=== PATIENT | female | born 1995 | race Caucasian/White ===

== ENCOUNTER 2017-11-09 15:29 | Emergency (ER) | payer MEDICAID ==
[~2017-11-09] VITALS: Ht 160 cm; Wt 65.0 kg
[~2017-11-09 15:29] MED LIST: KEPP10002 PO; PERC5TAB12 PO
[2017-11-09 15:33] VITALS: BP 140/85; PULSE 91; RESP 22; TEMP 98.2; O2SAT 100
[2017-11-09 16:28] LABS: AUTOMATED NEUTROPHIL # 8.9 TH/MM3 (1.8-7.7); BASOPHIL % 0.4 % (0.0-2.0); EOSINOPHIL # 0.1 TH/MM3 (0-0.4); EOSINOPHIL % 1.2 % (0.0-4.0); HEMATOCRIT 37.6 % (35.0-46.0); HEMOGLOBIN 12.7 GM/DL (11.6-15.3); LYMPH % 15.9 % (9.0-44.0); LYMPHOCYTE # 1.8 TH/MM3 (1.0-4.8); MEAN CELL VOLUME 82.9 FL (80.0-100.0); MEAN CORPUSCULAR HEMOGLOBIN 28.1 PG (27.0-34.0); MEAN CORPUSCULAR HGB CONC 33.9 % (32.0-36.0); MEAN PLATELET VOLUME 7.4 FL (7.0-11.0); MONO % 4.2 % (0.0-8.0); MONOCYTE # 0.5 TH/MM3 (0-0.9); NEUT % 78.3 % (16.0-70.0); PLATELET COUNT 372 TH/MM3 (150-450); RED BLOOD COUNT 4.53 MIL/MM3 (4.00-5.30); RED CELL DISTRIBUTION WIDTH 14.2 % (11.6-17.2); WHITE BLOOD COUNT 11.3 TH/MM3 (4.0-11.0)
[2017-11-09 16:44] LABS: BILIRUBIN, URINE NEG (NEG); BLOOD, URINE NEG (NEG); GLUCOSE,URINE NEG (NEG); KETONE, URINE 40 mg/dL (NEG); MUCUS URINE MANY /lpf (OCC); NITRITE,URINE NEG (NEG); PH, URINE 7.5 (5.0-8.5); SQUAMOUS EPITHELIAL CELL URINE 5 /hpf (0-5); URINE COLOR YELLOW (YELLW/STRAW); URINE LEUKOCYTE ESTERASE LARGE (NEG)
[2017-11-09 16:50] LABS: ALBUMIN 3.8 GM/DL (3.4-5.0); AST (GOT) 10 U/L (15-37); BICARBONATE 24.4 MEQ/L (21.0-32.0); BLOOD UREA NITROGEN 7 MG/DL (7-18); CALCIUM 9.3 MG/DL (8.5-10.1); CHLORIDE 102 MEQ/L (98-107); CREATININE 0.73 MG/DL (0.50-1.00); GLOMERULAR FILTRATION RATE 100 ML/MIN (>89); GLUCOSE,RANDOM 118 MG/DL (74-106); SODIUM (NA) 135 MEQ/L (136-145)
[2017-11-09 16:51] LABS: ALT (GPT) 14 U/L (10-53)
[2017-11-09 16:53] LABS: ALKALINE PHOSPHATASE 76 U/L (45-117); TOTAL BILIRUBIN ADULT 0.2 MG/DL (0.2-1.0); TOTAL PROTEIN 8.3 GM/DL (6.4-8.2)
[2017-11-09] MEDS ORDERED: ONDANSETRON ODT 4 MG TAB PO ONE (17:30)
[2017-11-09] MEDS ORDERED: ZOFR4TAB3 SL (17:43)
[2017-11-09] MEDS ORDERED: CEPH-460 PO (17:43)
--- NOTE | 2017-11-09 17:45 | PD ---
HPI Chief Complaint: Abdominal Pain Time Seen by Provider: 17:09 Travel History International Travel<30 days: No Contact w/Intl Traveler<30days: No Traveled to known affect area: No History of Present Illness HPI 22-year-old woman who presents to the emergency department complaining of nausea vomiting and loose stools and diarrhea. She states has been ongoing for the past 3 or 4 days. She describes copious vomiting, and difficulty keeping any p.o. down. She also reports her last mental period was about 3 months ago. She has no urinary symptoms. No vaginal discharge or vaginal bleeding. No definite sick contacts. No other complaints per History Past Medical History Medical History: Denies Significant Hx Tetanus Vaccination: > 5 Years Influenza Vaccination: No LMP: 09/08/17 : 1 Para: 1 Social History Alcohol Use: No Tobacco Use: Yes (2 cigarettes a day) Allergies-Medications (Allergen,Severity, Reaction): Coded Allergies: No Known Allergies (Verified Adverse Reaction, Unknown, 11/09/17) Reported Meds & Prescriptions Reported Meds & Active Scripts Active No Active Prescriptions or Reported Medications Review of Systems Except as stated in HPI: all other systems reviewed are Neg Physical Exam Narrative GENERAL: Well-appearing, no acute distress. SKIN: Focused skin assessment warm/dry. NECK: Trachea midline. No JVD. CARDIOVASCULAR: Regular rate and rhythm. No murmur appreciated. RESPIRATORY: No accessory muscle use. Clear to auscultation. Breath sounds equal bilaterally. GASTROINTESTINAL: Abdomen soft, non-tender, nondistended. Hepatic and splenic margins not palpable. MUSCULOSKELETAL: No obvious deformities. No edema NEUROLOGICAL: Awake and alert. No obvious cranial nerve deficits. Motor grossly within normal limits. Normal speech. Data Data Last Documented VS Vital Signs Date Time Temp Pulse Resp B/P (MAP) Pulse Ox O2 Delivery O2 Flow Rate FiO2 11/09/17 17:05 18 11/09/17 15:33 98.2 91 140/85 (103) 100 Room Air Orders Orders Complete Blood Count With Diff (11/09/17 15:54) Comprehensive Metabolic Panel (11/09/17 15:54) Urinalysis - C+S If Indicated (11/09/17 15:54) Ed Urine Pregnancytest Poc (11/09/17 15:54) Urine Culture (11/09/17 16:00) Ed Poc Ultrasound (11/09/17 ) Ondansetron Odt (Zofran Odt) (11/09/17 17:30) Gc And Chlamydia Pcr (11/09/17 17:19) Labs Laboratory Tests Test 11/09/17 16:00 White Blood Count 11.3 TH/MM3 Red Blood Count 4.53 MIL/MM3 Hemoglobin 12.7 GM/DL Hematocrit 37.6 % Mean Corpuscular Volume 82.9 FL Mean Corpuscular Hemoglobin 28.1 PG Mean Corpuscular Hemoglobin Concent 33.9 % Red Cell Distribution Width 14.2 % Platelet Count 372 TH/MM3 Mean Platelet Volume 7.4 FL Neutrophils (%) (Auto) 78.3 % Lymphocytes (%) (Auto) 15.9 % Monocytes (%) (Auto) 4.2 % Eosinophils (%) (Auto) 1.2 % Basophils (%) (Auto) 0.4 % Neutrophils # (Auto) 8.9 TH/MM3 Lymphocytes # (Auto) 1.8 TH/MM3 Monocytes # (Auto) 0.5 TH/MM3 Eosinophils # (Auto) 0.1 TH/MM3 Basophils # (Auto) 0.0 TH/MM3 CBC Comment DIFF FINAL Differential Comment Urine Color YELLOW Urine Turbidity HAZY Urine pH 7.5 Urine Specific [place] 1.029 Urine Protein 30 mg/dL Urine Glucose (UA) NEG mg/dL Urine Ketones 40 mg/dL Urine Occult Blood NEG Urine Nitrite NEG Urine Bilirubin NEG Urine Urobilinogen LESS THAN 2.0 MG/DL Urine Leukocyte Esterase LARGE Urine RBC 9 /hpf Urine WBC 75 /hpf Urine Squamous Epithelial Cells 5 /hpf Urine Mucus MANY /lpf Microscopic Urinalysis Comment CULTURE INDICATED Blood Urea Nitrogen 7 MG/DL Creatinine 0.73 MG/DL Random Glucose 118 MG/DL Total Protein 8.3 GM/DL Albumin 3.8 GM/DL Calcium Level 9.3 MG/DL Alkaline Phosphatase 76 U/L Aspartate Amino Transf (AST/SGOT) 10 U/L Alanine Aminotransferase (ALT/SGPT) 14 U/L Total Bilirubin 0.2 MG/DL Sodium Level 135 MEQ/L Potassium Level 3.4 MEQ/L Chloride Level 102 MEQ/L Carbon Dioxide Level 24.4 MEQ/L Anion Gap 9 MEQ/L Estimat Glomerular Filtration Rate 100 ML/MIN [facility] Medical Decision Making Medical Screen Exam Complete: Yes Emergency Medical Condition: Yes Interpretation(s) LABS: CBC remarkable for mild anemia. CMP unremarkable. UA with some pyuria. Differential Diagnosis , gastroenteritis, gastroparesis, enteritis, other Narrative Course Medical decision making INITIAL consult 22-year-old woman presents to the emergency department complaining of nausea vomiting diarrhea, some abdominal discomfort. Ultrasound confirms IUP. Looks well. Recommend supportive treatment. Diagnosis Primary Impression: UTI (urinary tract infection) during Additional Instructions: Take antibiotics as prescribed. The Zofran if needed for nausea or vomiting. Return to the emergency department for any new or worsening symptoms. Med/Other Pt SpecificInfo: No Change to Meds Scripts Cephalexin (Keflex) 500 Mg Cap 500 MG PO Q8H for Infection, #30 CAP 0 Refills Prov: Karl Rodriguez MD 11/09/17 Ondansetron Odt (Zofran Odt) 4 Mg Tab 4 MG SL Q8HR Y for Nausea/Vomiting, #15 TAB 0 Refills Prov: Karl Rodriguez MD 11/09/17 Disposition: 01 DISCHARGE HOME Condition: Stable Karl Rodriguez MD Nov 09, 2017 17:45
== END 2017-11-09 18:25 | disposition home or self-care (01) ==
LOC: NEPE 15:29
DX: O23.40 Unspecified infection of urinary tract in pregnancy, unspecified trimester (principal); F17.210 Nicotine dependence, cigarettes, uncomplicated
CPT/HCPCS: 80053; 81001; 84703; 85025; 87086; 87491; 87591; 99283

== ENCOUNTER 2018-01-12 15:04 | Emergency (ER) | payer MEDICAID, OTHER ==
[~2018-01-12 15:04] MED LIST changes: +CEPH-460 PO; -KEPP10002 PO; -PERC5TAB12 PO; +ZOFR4TAB3 SL
--- NOTE | 2018-01-12 17:00 | PD ---
HPI Chief Complaint abdominal pain, decreased movement. Date Seen: Jan 12, 2018 Time Seen: 16:56 Travel History International Travel<30 Days: No Contact w/Intl Traveler<30Days: No Known Affected Area: No History of Present Illness HPI pt. is a 22 y/o @ ~ 18 weeks present w/ c/o intermittent abdominal pain and decreased fetalmovement. pt. states has not felt baby move today. pt. also states has had crampy abdominal pain for today. no lof/vb. Weeks Gestation: 18 Para: 1 : 2 History Past Medical History Medical History: Denies Significant Hx Obstetric History Obstetric History , x 1 Past Surgical History Surgical History: No Previous Surgery Family History Family History: Negative Social History Alcohol Use: No Tobacco Use: No Substance Abuse: No Allergies-Medications (Allergen,Severity, Reaction): Coded Allergies: No Known Allergies (Verified Adverse Reaction, Unknown, 11/09/17) Home Meds Active Scripts Cephalexin (Keflex) 500 Mg Cap, 500 MG PO Q8H for Infection, #30 CAP 0 Refills Prov:Karl Rodriguez MD 11/09/17 Ondansetron Odt (Zofran Odt) 4 Mg Tab, 4 MG SL Q8HR Y for Nausea/Vomiting, #15 TAB 0 Refills Prov:Karl Rodriguez MD 11/09/17 Review of Systems Except as stated in HPI: all other systems reviewed are Neg Physical Exam Narrative GENERAL: Well-nourished, well-developed patient. SKIN: Warm and dry. HEAD: Normocephalic and atraumatic. EYES: No scleral icterus. No injection or drainage. ENT: No nasal drainage noted. Mucous membranes pink. Airway patent. NECK: Supple, trachea midline. No JVD. CARDIOVASCULAR: Regular rate and rhythm without murmurs, gallops, or rubs. RESPIRATORY: Breath sounds equal bilaterally. No accessory muscle use. BREASTS: Bilateral exam showed no masses , no retractions, no nipple discharge. ABDOMEN/GI: Abdomen soft, non-tender, bowel sounds present, no rebound, no guarding Gravid GENITOURINARY: Uterine Contractions: none FHT's: Reactive: + fht EXTREMITIES: No cyanosis or edema. BACK: Nontender without obvious deformity. No CVA tenderness. NEUROLOGICAL: Awake and alert. Motor and sensory grossly within normal limits. Five out of 5 muscle strength in all muscle groups. Normal speech. Data Data Vital Signs Reviewed: Yes Orders Orders Urinalysis - C+S If Indicated (01/12/18 16:28) Braille Duplicating Machine Operator Clear For Discharge (01/12/18 ) Labs Laboratory Tests Test 01/12/18 15:18 [facility] Medical Record Reviewed: Yes Plan pt. w/ improved pain w/ hydration and +fht on doppler. condition d/w pt. pt. 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 f/u as sched. given precautions for return. Diagnosis Diagnosis: Primary Impression: Abdominal pain affecting Additional Impressions: Decreased movement 18 weeks gestation of Disposition: 01 DISCHARGE HOME Kristofer Modi Jr., MD Jan 12, 2018 17:00
[2018-01-12 17:04] LABS: AMORPHOUS SEDIMENT, URINE OCC; BACTERIA, URINE MOD /hpf; BILIRUBIN, URINE NEG (NEG); BLOOD, URINE NEG (NEG); GLUCOSE,URINE NEG (NEG); KETONE, URINE NEG (NEG); MUCUS URINE FEW /lpf (OCC); NITRITE,URINE NEG (NEG); PH, URINE 5.5 (5.0-8.5); SQUAMOUS EPITHELIAL CELL URINE 15 /hpf (0-5); URINE COLOR YELLOW (YELLW/STRAW); URINE LEUKOCYTE ESTERASE LARGE (NEG)
== END 2018-01-12 17:03 | disposition home or self-care (01) ==
LOC: HOBED 15:04
DX: O36.8120 Decreased fetal movements, second trimester, not applicable or unspecified (principal); Z3A.18 18 weeks gestation of pregnancy
CPT/HCPCS: 81001; 87086; 99283

== ENCOUNTER 2018-01-31 16:36 | Emergency (ER) | payer OTHER ==
--- NOTE | 2018-01-31 17:10 | PD ---
HPI Travel History International Travel<30 Days: No Contact w/Intl Traveler<30Days: No History of Present Illness HPI 22-year-old female at 21 weeks presents with vaginal bleeding. Patient was recently here on January for spotting and decreased movement. Patient had positive heart tones on Doppler and was discharged home. Patient reports she was went to the bathroom at work and noticed some blood in the toilet. She is not sure the amount of blood but she notes that there are some dime sized blood droplets. She endorses good movement. She denies leakage of fluid, contractions, chest pain, shortness of breath, and fevers. She has been receiving care at [facility] care at [place]. Patient reports to nurse that she was chlamydia positive just recently and reports that she was "currently on medication." History Past Medical History Narrative Medical None Obstetric History Obstetric History 1 , vaginal delivery Past Surgical History Narrative Surgical Right arm surgery Laser surgery on face Family History Family History: Negative Social History Alcohol Use: No Tobacco Use: No Substance Abuse: No Allergies-Medications (Allergen,Severity, Reaction): Coded Allergies: No Known Allergies (Verified Adverse Reaction, Unknown, 11/09/17) Home Meds Active Scripts Cephalexin (Keflex) 500 Mg Cap, 500 MG PO Q8H for Infection, #30 CAP 0 Refills Prov:Karl Rodriguez MD 11/09/17 Ondansetron Odt (Zofran Odt) 4 Mg Tab, 4 MG SL Q8HR Y for Nausea/Vomiting, #15 TAB 0 Refills Prov:Karl Rodriguez MD 11/09/17 Review of Systems Except as stated in HPI: all other systems reviewed are Neg Physical Exam Narrative GENERAL: Well-nourished, well-developed patient. SKIN: Warm and dry. HEAD: Normocephalic and atraumatic. EYES: No scleral icterus. No injection or drainage. ENT: No nasal drainage noted. Mucous membranes pink. Airway patent. NECK: Supple, trachea midline. No JVD. CARDIOVASCULAR: Regular rate and rhythm without murmurs, gallops, or rubs. RESPIRATORY: Breath sounds equal bilaterally. No accessory muscle use. BREASTS: Bilateral exam showed no masses , no retractions, no nipple discharge. ABDOMEN/GI: Abdomen soft, non-tender, bowel sounds present, no rebound, no guarding heart tones:150s Speculum exam: White, thick vaginal discharge noted, no blood appreciated EXTREMITIES: No cyanosis or edema. BACK: Nontender without obvious deformity. NEUROLOGICAL: Awake and alert. Motor and sensory grossly within normal limits. Five out of 5 muscle strength in all muscle groups. Normal speech. Data Data Vital Signs Reviewed: Yes Orders Orders Vital Signs (Adult) .ON ADMISSION (01/31/18 17:05) ^ Labor Status (01/31/18 17:05) Heart (01/31/18 17:05) ^ Non Stress Test (01/31/18 17:05) ^ Hydration (01/31/18 17:05) MDM Plan 22-year-old female at 21 weeks presents with vaginal bleeding. -Intrauterine - heart tones: 150s on Doppler -Speculum exam, no blood appreciated -OB ultrasound reassuring -Vaginal Discharge, patient reports being recently positive for chlamydia -GC and Chlamydia PCR pending -wet prep pending -Treatment with 250 mg IM Rocephin and 1 g of azithromycin p.o. -Follow-up with OB provider for routine OB care sdw Dr. Modi Disposition: DISCHARGE HOME Condition: Stable Scripts Azithromycin Powder Packet (Zithromax Powder Packet) 1 Gm Powderpack 2 GM PO ONCE for Infection, #2 PKT 0 Refills Mix with water according to packet instructions before use. Prov: Angie Scott MD R1 01/31/18 Angie Scott MD R1 Jan 31, 2018 17:10
[2018-01-31] MEDS ORDERED: ZITH1POW PO (17:39)
[2018-01-31 18:39] LABS: AMORPHOUS SEDIMENT, URINE RARE; BILIRUBIN, URINE NEG (NEG); BLOOD, URINE NEG (NEG); GLUCOSE,URINE NEG (NEG); KETONE, URINE NEG (NEG); MUCUS URINE FEW /lpf (OCC); NITRITE,URINE NEG (NEG); PH, URINE 6.5 (5.0-8.5); SQUAMOUS EPITHELIAL CELL URINE 9 /hpf (0-5); URINE COLOR LIGHT-YELLOW (YELLW/STRAW); URINE LEUKOCYTE ESTERASE LARGE (NEG)
[2018-01-31] MEDS ORDERED: cefTRIAXone 250 MG VIAL IM ONE (20:00)
[2018-01-31] MEDS ORDERED: AZITHROMYCIN PWD FOR SUSP 1 GM PACKET PO ONE (20:00)
== END 2018-01-31 19:00 | disposition home or self-care (01) ==
LOC: HOBED 16:36
DX: O26.852 Spotting complicating pregnancy, second trimester (principal); N89.8 Other specified noninflammatory disorders of vagina; Z3A.21 21 weeks gestation of pregnancy
CPT/HCPCS: 76815; 81001; 87210; 87491; 87591; 96372; 99284; J0696

== ENCOUNTER 2018-03-20 19:03 | Emergency (ER) | payer MEDICAID, OTHER ==
[~2018-03-20] VITALS: Ht 160 cm; Wt 78.5 kg
[~2018-03-20 19:03] MED LIST changes: +ZITH1POW PO
[2018-03-20] MEDS ORDERED: PREN1TAB45 PO (20:09)
[2018-03-20 20:17] LABS: AMORPHOUS SEDIMENT, URINE RARE; BACTERIA, URINE FEW /hpf; BILIRUBIN, URINE NEG (NEG); BLOOD, URINE NEG (NEG); GLUCOSE,URINE NEG (NEG); KETONE, URINE NEG (NEG); MUCUS URINE FEW /lpf (OCC); NITRITE,URINE NEG (NEG); PH, URINE 6.5 (5.0-8.5); SQUAMOUS EPITHELIAL CELL URINE 3 /hpf (0-5); URINE COLOR YELLOW (YELLW/STRAW); URINE LEUKOCYTE ESTERASE LARGE (NEG)
[2018-03-20 20:45] LABS: AUTOMATED NEUTROPHIL # 9.9 TH/MM3 (1.8-7.7); BASOPHIL % 0.2 % (0.0-2.0); EOSINOPHIL # 0.2 TH/MM3 (0-0.4); EOSINOPHIL % 1.7 % (0.0-4.0); HEMATOCRIT 31.2 % (35.0-46.0); HEMOGLOBIN 10.5 GM/DL (11.6-15.3); LYMPH % 14.5 % (9.0-44.0); LYMPHOCYTE # 1.8 TH/MM3 (1.0-4.8); MEAN CELL VOLUME 85.3 FL (80.0-100.0); MEAN CORPUSCULAR HEMOGLOBIN 28.8 PG (27.0-34.0); MEAN CORPUSCULAR HGB CONC 33.7 % (32.0-36.0); MEAN PLATELET VOLUME 7.3 FL (7.0-11.0); MONOCYTE # 0.8 TH/MM3 (0-0.9); NEUT % 77.6 % (16.0-70.0); PLATELET COUNT 356 TH/MM3 (150-450); RED BLOOD COUNT 3.66 MIL/MM3 (4.00-5.30); RED CELL DISTRIBUTION WIDTH 14.1 % (11.6-17.2); WHITE BLOOD COUNT 12.7 TH/MM3 (4.0-11.0)
--- NOTE | 2018-03-20 20:47 | PD ---
HPI Chief Complaint abdominal and back pain Date Seen: Mar 20, 2018 Time Seen: 20:41 Travel History International Travel<30 Days: No Contact w/Intl Traveler<30Days: No Known Affected Area: No History of Present Illness HPI pt. is a 22 y/o @ 27 6/7 weeks present w/ c/o of abdominal and lower back pain. pt. states over the last day has had lower abdominal and low back pain that is constant and worsening with movement. pt. also states has dysuria. +FM, no lof/vb, ? ctxs. defacating w/o diff. denies fever/chills. Weeks Gestation: 27 Para: 1 : 2 History Past Medical History Medical History: Denies Significant Hx Obstetric History Obstetric History , x 1 Past Surgical History Surgical History: No Previous Surgery Family History Family History: Negative Social History Alcohol Use: No Tobacco Use: No Substance Abuse: No Allergies-Medications (Allergen,Severity, Reaction): Coded Allergies: shellfish derived (Verified Allergy, Severe, Anaphylaxis, 03/20/18) No Known Allergies (Verified Adverse Reaction, Unknown, 11/09/17) Home Meds Reported Medications Vit,Calc76/Iron/Folic (Pnv 29-1 Tablet) 29 Mg Iron-1 Mg Tablet, 1 TAB PO DAILY 03/20/18 Discontinued Scripts Azithromycin Powder Packet (Zithromax Powder Packet) 1 Gm Powderpack, 2 GM PO ONCE for Infection, #2 PKT 0 Refills Mix with water according to packet instructions before use. Prov:Angie Scott MD R1 01/31/18 Cephalexin (Keflex) 500 Mg Cap, 500 MG PO Q8H for Infection, #30 CAP 0 Refills Prov:Karl Rodriguez MD 11/09/17 Ondansetron Odt (Zofran Odt) 4 Mg Tab, 4 MG SL Q8HR Y for Nausea/Vomiting, #15 TAB 0 Refills Prov:Karl Rodriguez MD 11/09/17 Review of Systems Except as stated in HPI: all other systems reviewed are Neg Physical Exam Narrative GENERAL: Well-nourished, well-developed patient. SKIN: Warm and dry. HEAD: Normocephalic and atraumatic. EYES: No scleral icterus. No injection or drainage. ENT: No nasal drainage noted. Mucous membranes pink. Airway patent. NECK: Supple, trachea midline. No JVD. CARDIOVASCULAR: Regular rate and rhythm without murmurs, gallops, or rubs. RESPIRATORY: Breath sounds equal bilaterally. No accessory muscle use. ABDOMEN/GI: Abdomen soft, tender diffusely lower abdomen, bowel sounds present, no rebound, no guarding Gravid, paraspinal tenderness low back l>>r GENITOURINARY: External Genitalia: intact and normal in appearance Uterine Contractions: 1rritability FHT's: Category: 2 Reactive: + Variability: mod Decels: karishma EXTREMITIES: No cyanosis or edema. BACK: Nontender without obvious deformity. No CVA tenderness. NEUROLOGICAL: Awake and alert. Motor and sensory grossly within normal limits. Five out of 5 muscle strength in all muscle groups. Normal speech. Data Data Vital Signs Reviewed: Yes Orders Orders Urinalysis - C+S If Indicated (03/20/18 19:26) Urine Culture (03/20/18 19:17) Complete Blood Count With Diff (03/20/18 20:32) Basic Metabolic Panel (Bmp) (03/20/18 20:32) Ceftriaxone Inj (Rocephin Inj) (03/20/18 20:35) B2B Sales Professional Clear For Discharge (03/20/18 ) Labs Laboratory Tests Test 03/20/18 19:17 Urine Color YELLOW Urine Turbidity HAZY Urine pH 6.5 Urine Specific [place] 1.019 Urine Protein NEG Urine Glucose (UA) NEG Urine Ketones NEG Urine Occult Blood NEG Urine Nitrite NEG Urine Bilirubin NEG Urine Urobilinogen LESS THAN 2.0 Urine Leukocyte Esterase LARGE Urine RBC 3 Urine WBC 28 Urine Squamous Epithelial Cells 3 Urine Amorphous Sediment RARE Urine Bacteria FEW Urine Mucus FEW Microscopic Urinalysis Comment CULTURE INDICATED Date/Time Source Procedure Growth Status 03/20/18 19:17 Urine Clean Catch Urine Culture Pending Received [facility] Medical Record Reviewed: Yes Plan pt. w/ +UTI, ? pyelonephritis. condition d/w pt. pt. to have po hydration. pt. w/o fever and will be treated as outpt. pt. to have 1 gm rocephin im now then [id number] x 2 more doses. all ? answered. pt. given precautions for return and f/u as sched. Diagnosis Diagnosis: Primary Impression: UTI (urinary tract infection) during Additional Impressions: Pyelonephritis affecting Abdominal pain affecting Condition: Stable Kristofer Modi Jr., MD Mar 20, 2018 20:47
[2018-03-20] MEDS ORDERED: LIDOCAINE HCL 1% PF 30 ML VIAL ONE (20:54)
[2018-03-20 21:02] LABS: BICARBONATE 21.7 MEQ/L (21.0-32.0); CALCIUM 8.8 MG/DL (8.5-10.1); CREATININE 0.56 MG/DL (0.50-1.00)
[2018-03-20] MEDS ORDERED: oxyCODONE/ACETAMINOPHEN 5 MG/325 MG TAB PO ONE (21:30)
== END 2018-03-20 22:00 | disposition home or self-care (01) ==
LOC: HOBED 19:03
DX: O23.42 Unspecified infection of urinary tract in pregnancy, second trimester (principal); O23.02 Infections of kidney in pregnancy, second trimester; N12 Tubulo-interstitial nephritis, not specified as acute or chronic; O26.892 Other specified pregnancy related conditions, second trimester; R10.9 Unspecified abdominal pain; M54.5 Low back pain; Z3A.27 27 weeks gestation of pregnancy
CPT/HCPCS: 80048; 81001; 84112; 85025; 87086; 96372; 99283; J0696

== ENCOUNTER 2018-03-21 20:13 | Emergency (ER) | payer MEDICAID ==
[~2018-03-21 20:13] MED LIST changes: -CEPH-460 PO; +PREN1TAB45 PO; -ZITH1POW PO; -ZOFR4TAB3 SL
== END 2018-03-21 21:37 | disposition left against medical advice (07) ==
LOC: NED 20:13
DX: Z53.21 Procedure and treatment not carried out due to patient leaving prior to being seen by health care provider (principal)
CPT/HCPCS: 99281

== ENCOUNTER 2018-05-09 03:53 | Observation (INO) ==
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
[2018-05-09] MEDS ORDERED: Acetaminophen 325 MG Tablet PO PRN (05:08)
[2018-05-09] MEDS ORDERED: Zolpidem Tartrate 5 MG Tablet PO PRN (05:08)
[2018-05-09 05:36] LABS: Bacteria,Urine Rare /hpf; Bilirubin,Urine Negative (Negative); Clarity,Urine Hazy (Clear); Color,Urine Straw (Yellw/Straw); Glucose,Urine (UA) Negative (Negative); Leukocyte Esterase,Urine Moderate (Negative); Mucus,Urine Few /lpf (Occasional); Nitrite,Urine Negative (Negative); Specific Gravity,Urine 1.006 (1.002-1.035); Squamous Epithelial Cell,Urine 1 /hpf (0-5)
[2018-05-09 05:42] LABS: Baso # (Auto) 0.1 th/mm3 (0.0-0.2); Baso % (Auto) 0.5 % (0.0-2.0); Eos # (Auto) 0.3 th/mm3 (0.0-0.4); Eos % (Auto) 1.8 % (0.0-4.0); Hematocrit 29.5 % (35.0-46.0); Hemoglobin 9.8 gm/dL (11.6-15.3); Lymph # (Auto) 2.2 th/mm3 (1.0-4.8); Lymph % (Auto) 13.5 % (9.0-44.0); Mean Corpuscular HGB Conc 33.2 % (32.0-36.0); Mean Corpuscular Hemoglobin 27.9 pg (27.0-34.0); Mean Platelet Volume 8.3 fL (7.0-11.0); Mono # (Auto) 0.9 th/mm3 (0.0-0.9); Mono % (Auto) 5.7 % (0.0-8.0); Neut # (Auto) 12.6 th/mm3 (1.8-7.7); Neut % (Auto) 78.5 % (16.0-70.0); Platelet Count 428 th/mm3 (150-450); Red Blood Count 3.51 mil/mm3 (4.00-5.30); Red Cell Distribution Width 15.1 % (11.6-17.2); White Blood Count 16.1 th/mm3 (4.0-11.0)
[2018-05-09 05:42] LABS: Amphetamine Urine With Conf Neg (Neg); Benzodiazepine Urine With Conf Neg (Neg)
[2018-05-09] MEDS: Betamethasone Sod Phos/Acetate Inj 30 MG/5 ML Vial IM SCH (09:21)
[2018-05-09 10:04] LABS: Baso % (Auto) 0.3 % (0.0-2.0); Eos # (Auto) 0.3 th/mm3 (0.0-0.4); Eos % (Auto) 1.8 % (0.0-4.0); Hematocrit 28.5 % (35.0-46.0); Hemoglobin 9.6 gm/dL (11.6-15.3); Lymph # (Auto) 1.9 th/mm3 (1.0-4.8); Lymph % (Auto) 12.7 % (9.0-44.0); Mean Corpuscular HGB Conc 33.5 % (32.0-36.0); Mean Corpuscular Hemoglobin 28.3 pg (27.0-34.0); Mean Corpuscular Volume 84.5 fL (80.0-100.0); Mean Platelet Volume 7.9 fL (7.0-11.0); Mono # (Auto) 0.7 th/mm3 (0.0-0.9); Neut # (Auto) 11.9 th/mm3 (1.8-7.7); Neut % (Auto) 80.2 % (16.0-70.0); Platelet Count 365 th/mm3 (150-450); Red Blood Count 3.38 mil/mm3 (4.00-5.30); White Blood Count 14.8 th/mm3 (4.0-11.0)
[2018-05-09] MEDS: Docusate Sodium 100 MG Capsule PO SCH (10:41)
[2018-05-09] MEDS: Ferrous Sulfate 325 MG Tablet PO SCH ×2 (10:42→21:26)
[2018-05-09] MEDS: Prenatal Vit/Ca/Iron/Folic Acid Tablet PO SCH (11:30)
[2018-05-10 08:24] VITALS: RESP 18
[2018-05-10 08:25] VITALS: TEMP 98.4
--- NOTE | 2018-05-10 08:48 | P.OBANTE ---
Subjective Interval History: 22-year-old 001 at 35weeks and 1 day admitted for vaginal bleeding yesterday. She said she had some spotting yesterday, but none today. She denies any loss of fluids. She is feeling contractions and baby moving. Denies any pain , SOB, or chest pain. Had a bowel movement yesterday. Denies any dizziness or headache. Objective Vital Signs and I&O: Vital Signs 05/09/18 09:56 05/09/18 12:05 05/09/18 19:15 Temperature 98.7 F 98.0 F Pulse Rate 78 90 Respiratory Rate 18 17 Blood Pressure 110/65 127/53 L 05/10/18 08:08 Temperature 98.4 F Pulse Rate Respiratory Rate 18 Blood Pressure Lab and Micro Results: Laboratory Results - last 24 hr 05/09/18 05/09/18 09:41 09:41 WBC 14.8 H RBC 3.38 L Hgb 9.6 L Hct 28.5 L MCV 84.5 MCH 28.3 MCHC 33.5 RDW 15.0 Plt Count 365 MPV 7.9 Neut % (Auto) 80.2 H Lymph % (Auto) 12.7 [place] % (Auto) 5.0 Eos % (Auto) 1.8 Baso % (Auto) 0.3 Neut # (Auto) 11.9 H Lymph # (Auto) 1.9 [place] # (Auto) 0.7 Eos # (Auto) 0.3 Baso # (Auto) 0.0 WBC Differential . Differential Comment Auto diff final Blood Type A Positive Blood Type Recheck Not needed Physical Exam: GENERAL: Well-nourished, well-developed patient. CARDIOVASCULAR: Regular rate and rhythm without murmurs, gallops, or rubs. RESPIRATORY: Breath sounds equal bilaterally. No accessory muscle use. ABDOMEN/GI: Abdomen soft, some tenderness of LLQ. GENITOURINARY: External Genitalia: intact and normal in appearance Dilatation: 3 Effacement: 50 Station: -2 Membranes:intact Uterine Contractions: one in a 20 minute strip FHT's: Category: 1 Baseline: 130 Reactive: yes Variability: moderate Decels: none EXTREMITIES: No cyanosis or edema, non-tender, without signs of DVT. Assessment and Plan - Diagnosis (1) Vaginal bleeding during , antepartum Code(s): O46.90 - Antepartum hemorrhage, unspecified, unspecified trimester Status: Acute Plan: 22 year old female at 35 weeks and 1 day who presented yesterday with vaginal bleeding. She hasn't had any spotting since yesterday. Hemoglobin 9.6 and denies any dizziness or headache. Occasional contraction on monitor once in 20 minutes. Reactive NST and category 1 heart tracings. -Discharge home. Told to return if any vaginal bleeding, decreased movement, loss of fluids, or increasing contractions. -prescription Zofran 4mg ODT PRN nausea
[2018-05-10 08:49] VITALS: BP 106/45; PULSE 75
[2018-05-10] MEDS: Ferrous Sulfate 325 MG Tablet PO SCH (09:08)
[2018-05-10] MEDS: Prenatal Vit/Ca/Iron/Folic Acid Tablet PO SCH (09:08)
[2018-05-10] MEDS: Docusate Sodium 100 MG Capsule PO SCH (09:08)
[2018-05-10] MEDS: Betamethasone Sod Phos/Acetate Inj 30 MG/5 ML Vial IM SCH (09:36)
== END 2018-05-10 11:41 | disposition home or self-care (01) ==
LOC: H2E 03:53 → HOBED 03:53 → H2E 10:30
PROVIDERS: ADMIT Obstetrics & Gynecology; ATTEND Obstetrics & Gynecology

== ENCOUNTER 2018-05-15 09:02 | Observation (INO) ==
--- NOTE | 2018-05-15 09:54 | ED ---
History of Present Illness Primary Care Physician: UNKNOWN Chief Complaint: Contractions History of Present Illness: 22-year-old at 35/6 presents to the OB ED with contractions. Patient states that since exam this morning she has been having contractions every 3-4 minutes that are exquisitely painful. She denies any vaginal bleeding, gush of fluid, decreased movement. She also denies any fever chills, dysuria, chest pain or shortness of breath. She has had some nausea and increased urinary frequency. She denies any complications during this , but was admitted observation several weeks ago due to vaginal bleeding. Was found to be 2-3/50/-2 at that time. 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, 1 Review of Systems All other systems reviewed negative except as stated in HPI PMFSH - History History Provided By: Patient - Medical / Surgical Hx Neg / Unobtainable Medical Problems Denied: Yes - Surgical History Surgical History: Surgical History (Last Updated 05/15/18 @ 09:51 by Parker Gonzales MD, R2) History of surgery on arm - Tobacco History Second Hand Smoke Exposure: Yes Tobacco Use In Past 30 Days: Yes (Quit 2 weeks ago) Smoking Status: Former smoker Tobacco Type: Cigarettes - Alcohol History How Often Do You Have a Drink Containing Alcohol: Never - Substance Use History Substance History: Past History - Travel History History of Recent Travel: No Medications and Allergies Allergies Allergy/AdvReac Type Severity Reaction Status Date / Time shellfish derived Allergy Severe Anaphylaxis Verified 03/20/18 20:07 Home Medications Medication Instructions Recorded Confirmed Type vit,[id number] 1 tab PO DAILY 05/09/18 05/15/18 History [PNV 29-1] Exam Vital signs: Vital Signs 05/15/18 09:30 Temperature 97.7 F Pulse Rate 89 Respiratory Rate 19 Blood Pressure 120/59 L Narrative: GENERAL: Well-nourished, well-developed patient. SKIN: Warm and dry. HEAD: Normocephalic and atraumatic. EYES: No scleral icterus. No injection or drainage. ENT: No nasal drainage noted. Mucous membranes pink. Airway patent. NECK: Supple, trachea midline. No JVD. CARDIOVASCULAR: Regular rate and rhythm without murmurs, gallops, or rubs. RESPIRATORY: Breath sounds equal bilaterally. No accessory muscle use. ABDOMEN/GI: Abdomen soft, non-tender, bowel sounds present, no rebound, no guarding Gravid to 35 weeks size GENITOURINARY: External Genitalia: intact and normal in appearance Cervix: Posterior Dilatation: 2-3 Effacement: 50 Station: -3 Presentation: Vertex Membranes: Intact Uterine Contractions: Absent FHT's: Category: 1 Baseline: 120 Reactive: y Variability: Moderate Decels: Absent EXTREMITIES: No cyanosis or edema. BACK: Nontender without obvious deformity. Mild left-sided CVA tenderness NEUROLOGICAL: Awake and alert. Motor and sensory grossly within normal limits. Five out of 5 muscle strength in all muscle groups. Normal speech. Assessment and Plan - Diagnosis (1) Uterine contractions during Code(s): O62.2 - Other uterine inertia Status: Acute (2) Pyelonephritis affecting in third trimester Code(s): O23.03 - Infections of kidney in , third trimester Status: Acute - Plan 22-year-old at 35/6 presenting to the OB ED with complaints of uterine contractions. Mild left-sided CVA tenderness noted. Urine dipstick significant for moderate leukocyte esterase. 2-3/50/-3 -Category 1 tracing, no contractions on the monitor -UA showing large leukocyte esterase, 33 WBC with culture pending -Will give 1 L lactated Ringer bolus, continue at 125ml/hr -Fentanyl 50 mg IV q3hr for pain -Ancef 2gm TID -ordering CBC, BMP -Admitting for 23 hour observation Discharge Plan - Discharge Disposition Patient Disposition: 30 Still Patient - Discharge Condition Condition: Stable - Physicians Team ED Provider: Aamir Gregory Primary Care Provider: UNKNOWN, - Rxs /Orders / Referrals /Forms Prescriptions: No Action vit,[id number] [PNV 29-1] 29 mg iron- 1 mg Tablet 1 tab PO DAILY - Discharge Instructions Print Language: Sinhala
[2018-05-15] MEDS ORDERED: fentaNYL Citrate Inj 100 MCG/2 ML Ampul IV.PUSH ONE (10:02)
[2018-05-15 10:40] LABS: Bacteria,Urine Rare /hpf; Bilirubin,Urine Negative (Negative); Clarity,Urine Cloudy (Clear); Color,Urine Yellow (Yellw/Straw); Glucose,Urine (UA) Negative (Negative); Leukocyte Esterase,Urine Large (Negative); Mucus,Urine Few /lpf (Occasional); Nitrite,Urine Negative (Negative); Specific Gravity,Urine 1.013 (1.002-1.035); Squamous Epithelial Cell,Urine 11 /hpf (0-5)
[2018-05-15] MEDS ORDERED: fentaNYL Citrate Inj 100 MCG/2 ML Ampul IV.PUSH PRN ×2 (10:54→11:07)
[2018-05-15] MEDS ORDERED: Zolpidem Tartrate 5 MG Tablet PO PRN (10:54)
[2018-05-15] MEDS ORDERED: Acetaminophen 325 MG Tablet PO PRN (10:54)
[2018-05-15] MEDS ORDERED: ceFAZolin Inj 2,000 MG in Sodium Chlor 0.9% Inj 80 ML IV.SIG SCH (10:57)
--- NOTE | 2018-05-15 11:01 | P.HPOB ---
22-year-old at 35/6 presents to the OB ED with contractions. Patient states that since exam this morning she has been having contractions every 3-4 minutes that are exquisitely painful. She denies any vaginal bleeding, gush of fluid, decreased movement. She also denies any fever chills, dysuria, chest pain or shortness of breath. She has had some nausea and increased urinary frequency. She denies any complications during this , but was admitted observation several weeks ago due to vaginal bleeding. Was found to be 2-3/50/-2 at that time. 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, 1 Review of Systems All other systems reviewed negative except as stated in HPI PMFSH - History History Provided By: Patient - Medical / Surgical Hx Neg / Unobtainable Medical Problems Denied: Yes - Surgical History Surgical History: Surgical History (Last Updated 05/15/18 @ 09:51 by Parker Gonzales MD, R2) History of surgery on arm - Tobacco History Second Hand Smoke Exposure: Yes Tobacco Use In Past 30 Days: Yes (Quit 2 weeks ago) Smoking Status: Former smoker Tobacco Type: Cigarettes - Alcohol History How Often Do You Have a Drink Containing Alcohol: Never - Substance Use History Substance History: Past History - Travel History History of Recent Travel: No Medications and Allergies Allergies Allergy/AdvReac Type Severity Reaction Status Date / Time shellfish derived Allergy Severe Anaphylaxis Verified 03/20/18 20:07 Home Medications Medication Instructions Recorded Confirmed Type vit,[id number] 1 tab PO DAILY 05/09/18 05/15/18 History [PNV 29-1] Exam Vital signs: Vital Signs 05/15/18 09:30 Temperature 97.7 F Pulse Rate 89 Respiratory Rate 19 Blood Pressure 120/59 L Narrative: GENERAL: Well-nourished, well-developed patient. SKIN: Warm and dry. HEAD: Normocephalic and atraumatic. EYES: No scleral icterus. No injection or drainage. ENT: No nasal drainage noted. Mucous membranes pink. Airway patent. NECK: Supple, trachea midline. No JVD. CARDIOVASCULAR: Regular rate and rhythm without murmurs, gallops, or rubs. RESPIRATORY: Breath sounds equal bilaterally. No accessory muscle use. ABDOMEN/GI: Abdomen soft, non-tender, bowel sounds present, no rebound, no guarding Gravid to 35 weeks size GENITOURINARY: External Genitalia: intact and normal in appearance Cervix: Posterior Dilatation: 2-3 Effacement: 50 Station: -3 Presentation: Vertex Membranes: Intact Uterine Contractions: Absent FHT's: Category: 1 Baseline: 120 Reactive: y Variability: Moderate Decels: Absent EXTREMITIES: No cyanosis or edema. BACK: Nontender without obvious deformity. Mild left-sided CVA tenderness NEUROLOGICAL: Awake and alert. Motor and sensory grossly within normal limits. Five out of 5 muscle strength in all muscle groups. Normal speech. Assessment and Plan - Diagnosis (1) Uterine contractions during Code(s): O62.2 - Other uterine inertia Status: Acute (2) Pyelonephritis affecting in third trimester Code(s): O23.03 - Infections of kidney in , third trimester Status: Acute - Plan 22-year-old at 35/6 presenting to the OB ED with complaints of uterine contractions. Mild left-sided CVA tenderness noted. Urine dipstick significant for moderate leukocyte esterase. 2-3/50/-3 -Category 1 tracing, no contractions on the monitor -UA showing large leukocyte esterase, 33 WBC with culture pending -Will give 1 L lactated Ringer bolus, continue at 125ml/hr -Fentanyl 50 mg IV q3hr for pain -Ancef 2gm TID -ordering CBC, BMP -Admitting for 23 hour observation
[2018-05-15 13:33] LABS: Baso % (Auto) 0.2 % (0.0-2.0); Eos # (Auto) 0.2 th/mm3 (0.0-0.4); Eos % (Auto) 1.6 % (0.0-4.0); Hematocrit 29.4 % (35.0-46.0); Hemoglobin 9.9 gm/dL (11.6-15.3); Lymph % (Auto) 13.6 % (9.0-44.0); Mean Corpuscular HGB Conc 33.9 % (32.0-36.0); Mean Corpuscular Hemoglobin 28.4 pg (27.0-34.0); Mean Corpuscular Volume 83.9 fL (80.0-100.0); Mean Platelet Volume 7.7 fL (7.0-11.0); Mono # (Auto) 0.7 th/mm3 (0.0-0.9); Mono % (Auto) 5.2 % (0.0-8.0); Neut # (Auto) 11.5 th/mm3 (1.8-7.7); Neut % (Auto) 79.4 % (16.0-70.0); Platelet Count 394 th/mm3 (150-450); Red Cell Distribution Width 15.4 % (11.6-17.2); White Blood Count 14.4 th/mm3 (4.0-11.0)
[2018-05-15 14:03] LABS: Anion Gap 8 meq/L (5-15); Blood Urea Nitrogen 5 mg/dL (7-18); Calcium 8.6 mg/dL (8.5-10.1); Carbon Dioxide 25.5 meq/L (21.0-32.0); Chloride 104 meq/L (98-107); Glomerular Filtration Rate Greater Than 89 mL/min (>89); Glucose,Random 78 mg/dL (74-106); Potassium 3.7 meq/L (3.5-5.1); Sodium 137 meq/L (136-145)
[2018-05-15 16:55] LABS: Amphetamine Urine With Conf Neg (Neg); Benzodiazepine Urine With Conf Neg (Neg)
[2018-05-15] MEDS: ceFAZolin Inj 2,000 MG in Sodium Chlor 0.9% Inj 80 ML IV.SIG SCH (21:04)
[2018-05-16] MEDS: ceFAZolin Inj 2,000 MG in Sodium Chlor 0.9% Inj 80 ML IV.SIG SCH ×2 (05:08→13:38)
[2018-05-16] MEDS ORDERED: Docusate Sodium 100 MG Capsule PO SCH (09:00)
--- NOTE | 2018-05-16 09:17 | P.OBANTE ---
Subjective Interval History: Patient says pain has improved. Had some vomiting after dinner last night. Has not tried eating this morning. No nausea this morning. No vaginal bleeding, loss of fluids, contractions, or decreased movement. Objective Vital Signs and I&O: Vital Signs 05/15/18 09:30 05/15/18 12:23 05/15/18 15:56 Temperature 97.7 F 97.7 F 97.5 F L Pulse Rate 89 70 88 Respiratory Rate 19 17 18 Blood Pressure 120/59 L 116/64 119/66 05/15/18 19:17 05/15/18 19:18 05/15/18 21:40 Temperature 98.1 F Pulse Rate 77 Respiratory Rate 18 18 Blood Pressure 122/53 L 05/15/18 22:57 05/16/18 00:00 05/16/18 01:02 Temperature Pulse Rate Respiratory Rate 18 18 18 Blood Pressure 05/16/18 01:03 05/16/18 04:00 05/16/18 05:01 Temperature Pulse Rate 95 H 89 Respiratory Rate 18 Blood Pressure 110/36 L 102/75 05/16/18 05:04 05/16/18 09:08 Temperature 98.1 F 98.3 F Pulse Rate 73 Respiratory Rate 18 Blood Pressure 121/59 L Intake & Output 05/15/18 05/16/18 05/16/18 18:59 06:59 18:59 Intake Total 1100 / 1100 Balance 1100 / 1100 Weight 77.111 kg Intake: IV 1100 / 1100 LR 1000 mL Inj 1,000 ML @ 125 1000 / 1000 mls/hr IV.CONT .Q8H OCTAVIANO Rx#: [id number] Ancef Inj 2,000 MG In NS Inj 80 100 / 100 ML @ 200 mls/hr IV.SIG Q8H OCTAVIANO Rx#:[id number] Lab and Micro Results: Laboratory Results - last 24 hr 05/15/18 05/15/18 05/15/18 09:15 09:15 12:40 WBC 14.4 H RBC 3.50 L Hgb 9.9 L Hct 29.4 L MCV 83.9 MCH 28.4 MCHC 33.9 RDW 15.4 Plt Count 394 MPV 7.7 Neut % (Auto) 79.4 H Lymph % (Auto) 13.6 [place] % (Auto) 5.2 Eos % (Auto) 1.6 Baso % (Auto) 0.2 Neut # (Auto) 11.5 H Lymph # (Auto) 2.0 [place] # (Auto) 0.7 Eos # (Auto) 0.2 Baso # (Auto) 0.0 WBC Differential . Differential Comment Auto diff final Sodium Potassium Chloride Carbon Dioxide Anion Gap BUN Creatinine Estimated GFR Random Glucose Calcium Urine Color Yellow Urine Clarity Cloudy H Urine pH 6.0 Ur Specific [place] 1.013 Urine Protein Negative Urine Glucose (UA) Negative Urine Ketones Negative Urine Occult Blood Negative Urine Nitrate Negative Urine Bilirubin Negative Urine Urobilinogen Less than 2 Ur Leukocyte Esterase Large H Urine RBC 6 H Urine WBC 33 H Ur Squamous Epith Cells 11 Urine Bacteria Rare H Urine Mucus Few H Micro UA Comment Culture indicated Urine Culture Comments Culture indicated Urine Opiates Screen Neg Ur Barbiturates Screen Neg Ur Amphetamine Screen Neg U Benzodiazepines Scrn Neg Urine Cocaine Screen Neg U Cannabinoids Screen Pos H Rubella Immunity Screen Rubella Ab, Quant 05/15/18 05/16/18 12:43 04:54 WBC RBC Hgb Hct MCV MCH MCHC RDW Plt Count MPV Neut % (Auto) Lymph % (Auto) [place] % (Auto) Eos % (Auto) Baso % (Auto) Neut # (Auto) Lymph # (Auto) [place] # (Auto) Eos # (Auto) Baso # (Auto) WBC Differential Differential Comment Sodium 137 Potassium 3.7 Chloride 104 Carbon Dioxide 25.5 Anion Gap 8 BUN 5 L Creatinine 0.52 Estimated GFR Greater than 89 Random Glucose 78 Calcium 8.6 Urine Color Urine Clarity Urine pH Ur Specific [place] Urine Protein Urine Glucose (UA) Urine Ketones Urine Occult Blood Urine Nitrate Urine Bilirubin Urine Urobilinogen Ur Leukocyte Esterase Urine RBC Urine WBC Ur Squamous Epith Cells Urine Bacteria Urine Mucus Micro UA Comment Urine Culture Comments Urine Opiates Screen Ur Barbiturates Screen Ur Amphetamine Screen U Benzodiazepines Scrn Urine Cocaine Screen U Cannabinoids Screen Rubella Immunity Screen Indeterminate Rubella Ab, Quant 7.1 L Physical Exam: GENERAL: Well-nourished, well-developed patient. CARDIOVASCULAR: Regular rate and rhythm without murmurs, gallops, or rubs. RESPIRATORY: Breath sounds equal bilaterally. No accessory muscle use. ABDOMEN/GI: Abdomen soft, non-tender. MSK: NO CVA tenderness EXTREMITIES: No cyanosis or edema, non-tender, without signs of DVT. Assessment and Plan - Diagnosis (1) Pyelonephritis affecting in third trimester Code(s): O23.03 - Infections of kidney in , third trimester Status: Acute Plan: 22-year-old at 35/6 presenting to the OB ED with complaints of uterine contractions. Mild left-sided CVA tenderness noted. Urine dipstick significant for moderate leukocyte esterase. 2-3/50/-3. UA positive for leuk esterase. Afebrile. -anceph 2g q8 -if patient able to eat lunch without vomiting, discharge today on Macrobid 100 BID for 7 days
[2018-05-16 13:47] LABS: Baso % (Auto) 0.3 % (0.0-2.0); Eos # (Auto) 0.2 th/mm3 (0.0-0.4); Eos % (Auto) 1.6 % (0.0-4.0); Hematocrit 28.4 % (35.0-46.0); Hemoglobin 9.5 gm/dL (11.6-15.3); Lymph # (Auto) 1.4 th/mm3 (1.0-4.8); Mean Corpuscular HGB Conc 33.4 % (32.0-36.0); Mean Corpuscular Hemoglobin 28.1 pg (27.0-34.0); Mean Platelet Volume 7.4 fL (7.0-11.0); Mono # (Auto) 0.8 th/mm3 (0.0-0.9); Mono % (Auto) 6.6 % (0.0-8.0); Neut # (Auto) 10.2 th/mm3 (1.8-7.7); Neut % (Auto) 80.5 % (16.0-70.0); Platelet Count 397 th/mm3 (150-450); Red Blood Count 3.39 mil/mm3 (4.00-5.30); Red Cell Distribution Width 14.8 % (11.6-17.2); White Blood Count 12.7 th/mm3 (4.0-11.0)
[2018-05-16 15:42] LABS: Hepatitis A IgM Antibody Nonreactive (Nonreactive); Hepatitits B Surface Antigen Nonreactive (Nonreactive)
== END 2018-05-16 14:57 | disposition home or self-care (01) ==
LOC: HOBED 09:02 → H2E 09:02
PROVIDERS: ADMIT Obstetrics & Gynecology Maternal & Fetal Medicine; ATTEND Obstetrics & Gynecology Maternal & Fetal Medicine
DX: O62.2 Other uterine inertia; N12 Tubulo-interstitial nephritis, not specified as acute or chronic; O23.03 Infections of kidney in pregnancy, third trimester; R10.2 Pelvic and perineal pain; Z87.891 Personal history of nicotine dependence; Z3A.35 35 weeks gestation of pregnancy; O60.03 Preterm labor without delivery, third trimester; G89.29 Other chronic pain; R35.0 Frequency of micturition

== ENCOUNTER 2018-05-30 00:59 | Inpatient (IN) ==
[2018-05-30] MEDS ORDERED: Citric Acid/Sodium Citrate Liq 30 ML UDC PO SCH (01:30)
[2018-05-30] MEDS ORDERED: Sod Chloride 0.9% Inj 1,000 ML IV.CONT PRN (01:30)
[2018-05-30] MEDS ORDERED: Naloxone Inj 0.4 MG/ML Vial IV.PUSH PRN (01:30)
[2018-05-30] MEDS ORDERED: Oxytocin 30 Units/500ml Premix 30 UNITS/500 ML BAG IV.SIG ONE (01:30)
[2018-05-30] MEDS ORDERED: Sodium Chlor 0.9% Inj 500 ML IV.SIG PRN (01:30)
[2018-05-30] MEDS ORDERED: fentaNYL Citrate Inj 100 MCG/2 ML Ampul IV.PUSH PRN ×2 (01:30)
[2018-05-30] MEDS ORDERED: Penicillin G Potassium Inj 5,000,000 UNIT in Sodium Chloride 0.9% Inj 100 ML IV.SIG ONE (01:45)
--- NOTE | 2018-05-30 01:47 | ED ---
History of Present Illness Primary Care Physician: UNKNOWN Chief Complaint: SROM History of Present Illness: Ms Navarrete is a 22 YO at 38 weeks gestation followed by Dr Ventura until March who presents with SROM at 12:30 AM about 30 minutes ago with brownish meconium stained fluid. Pt is having ctx but no VB. Pt states she feels good movement. Reports last delivered vaginally at term. Pt reports she has had arm and laser surgery. Denies medications except for PNV; NKDA; denies EtOH and drugs but smokes cigarettes. Records obtained indicate she is blood type A+; however, there is no record of GBS testing. Weeks Gestation:: 38 Para: 1 : 2 [facility] - History History Provided By: Patient - Medical / Surgical Hx Neg / Unobtainable Medical Problems Denied: Yes - Surgical History Surgical History: Surgical History (Last Updated 05/15/18 @ 09:51 by Parker Gonzales MD, R2) History of surgery on arm - Tobacco History Second Hand Smoke Exposure: Yes Smoking Status: Former smoker Tobacco Type: Cigarettes - Alcohol History How Often Do You Have a Drink Containing Alcohol: Never - Substance Use History Substance History: Past History - Travel History History of Recent Travel: No Medications and Allergies Active Medications: Active Medications Citric Acid/Sodium Citrate (Sodium Citrate/Citric Acid Liq) 30 ml PO DAIRY SCIENTIST [facility] Stop: 06/03/18 01:29 Fentanyl Citrate (Fentanyl Inj) 50 mcg IV.PUSH Q1H PRN PRN Reason: Pain Scale 3 - 5 Fentanyl Citrate (Fentanyl Inj) 100 mcg IV.PUSH Q1H PRN PRN Reason: PAIN SCALE 6 TO 10 Lactated Ringer's (Lr 1000 Ml Inj) 1,000 mls @ 125 mls/hr IV.CONT .Q8H [facility] Lactated Ringer's (Lr 1000 Ml Inj) 1,000 mls @ 3,000 mls/hr IV.SIG UNSCH PRN PRN Reason: compromise or epidural Sodium Chloride (Ns Inj) 1,000 mls @ 100 mls/hr IV.CONT .Q10H PRN PRN Reason: SEE LABEL COMMENTS Oxytocin (Pitocin 30 Units/Ns 500 Ml Premix) 30 units in 500 mls @ 999 mls/hr IV.SIG BOLUS ONE Stop: 05/30/18 02:00 Penicillin G Potassium 5,000, (000 unit/ Sodium Chloride) 100 mls @ 200 mls/hr IV.SIG ONCE ONE Stop: 05/30/18 01:59 Penicillin G Potassium 2,500, (000 unit/ Sodium Chloride) 100 mls @ 200 mls/hr IV.SIG Q4H [facility] Sodium Chloride (Ns Inj) 500 mls @ 1,000 mls/hr IV.SIG UNSCH PRN PRN Reason: SEE LABEL COMMENTS Lidocaine HCl (Xylocaine 1% Inj) 10 ml INFILTRATN PRN PRN PRN Reason: For episiotomy repair Stop: 06/01/18 01:29 Lidocaine HCl (Xylocaine 1% Inj) 0.1 ml I-DERMAL PRN PRN PRN Reason: For IV start Stop: 06/02/18 01:29 Mineral Oil (Muri-Lube Oil) 10 ml TOPICAL PRN PRN PRN Reason: PRN perineal massage Naloxone HCl (Narcan Inj) 0.1 mg IV.PUSH Q2M PRN PRN Reason: for opiate reversal Allergies Allergy/AdvReac Type Severity Reaction Status Date / Time shellfish derived Allergy Severe Anaphylaxis Verified 03/20/18 20:07 Home Medications Medication Instructions Recorded Confirmed Type vit,[id number] 1 tab PO DAILY 05/09/18 05/30/18 History [PNV 29-1] Exam Vital signs: Vital Signs 05/30/18 01:09 05/30/18 01:13 05/30/18 01:18 Temperature 98.1 F Pulse Rate 91 H Respiratory Rate 16 Blood Pressure 125/60 05/30/18 01:19 Temperature Pulse Rate Respiratory Rate 16 Blood Pressure Narrative: GENERAL: Well-nourished, well-developed patient in moderate pain from ctx. SKIN: Warm and dry. Good turgor HEAD: Normocephalic and atraumatic. EYES: No scleral icterus. No injection or drainage. ENT: No nasal drainage noted. Mucous membranes pink. Airway patent. NECK: Supple, trachea midline. No JVD. CARDIOVASCULAR: Regular rate and rhythm without murmurs, gallops, or rubs. RESPIRATORY: Breath sounds equal bilaterally. No accessory muscle use. ABDOMEN/GI: Abdomen soft, gravid, non-tender, bowel sounds present, no rebound, no guarding Gravid to 38 weeks size GENITOURINARY: External Genitalia: intact and normal in appearance Cervix: - Dilatation: 4-5 Effacement: 70 Station: -1 Presentation: vtx Membranes: ruptured, meconium stained Uterine Contractions: present FHT's: Category: 1 Baseline: 140 Reactive: yes Variability: moderate Decels: absent EXTREMITIES: No cyanosis or edema. BACK: Nontender without obvious deformity. No CVA tenderness. NEUROLOGICAL: Awake and alert. Motor and sensory grossly within normal limits. Five out of 5 muscle strength in all muscle groups. Normal speech. Results - Labs CBC & Chem 7: 05/30/18 01:40 Assessment and Plan - Diagnosis (1) Normal labor Code(s): O80 - Encounter for full-term uncomplicated delivery; Z37.9 - Outcome of delivery, unspecified Status: Acute Plan: 22 YO at 38 weeks followed until March by Dr Ventura presents with SROM about 30 minutes ago with meconium stained fluid and painful ctx. No vb. +FM. Cervix 4 -5/70/-1. FHT with BL 140, reactive, moderate, and no decels. GBS is unknown and she has no known allergies. Blood type is A+. Admit for Labor and Delivery. 1. Routine Labor -Admit to L&D -GBS unknown; GBS PCR ordered --If positive, PCN G 5 million units IV --PCN G 2.5 million units IV 4 hours after 1st dose if not yet delivered -Epidural PRN -OB UDS Pt SDW Dr Gregory Discharge Plan - Discharge Disposition Patient [place] [facility] [place] Condition Condition: Stable - Physicians Team Primary Care Provider: UNKNOWN, Attending Provider: Aamir Gregory
[2018-05-30 02:04] LABS: Baso % (Auto) 0.4 % (0.0-2.0); Eos # (Auto) 0.2 th/mm3 (0.0-0.4); Eos % (Auto) 1.3 % (0.0-4.0); Hematocrit 30.3 % (35.0-46.0); Lymph # (Auto) 1.7 th/mm3 (1.0-4.8); Lymph % (Auto) 13.3 % (9.0-44.0); Mean Corpuscular HGB Conc 33.1 % (32.0-36.0); Mean Corpuscular Hemoglobin 27.6 pg (27.0-34.0); Mean Corpuscular Volume 83.5 fL (80.0-100.0); Mean Platelet Volume 7.6 fL (7.0-11.0); Mono # (Auto) 0.8 th/mm3 (0.0-0.9); Mono % (Auto) 5.7 % (0.0-8.0); Neut # (Auto) 10.5 th/mm3 (1.8-7.7); Neut % (Auto) 79.3 % (16.0-70.0); Platelet Count 420 th/mm3 (150-450); Red Blood Count 3.63 mil/mm3 (4.00-5.30); Red Cell Distribution Width 15.2 % (11.6-17.2); White Blood Count 13.2 th/mm3 (4.0-11.0)
[2018-05-30 02:12] LABS: Bacteria,Urine Occasional /hpf; Bilirubin,Urine Negative (Negative); Clarity,Urine Cloudy (Clear); Color,Urine Amber (Yellw/Straw); Glucose,Urine (UA) Negative (Negative); Leukocyte Esterase,Urine Moderate (Negative); Mucus,Urine Few /lpf (Occasional); Nitrite,Urine Negative (Negative); Specific Gravity,Urine 1.012 (1.002-1.035); Squamous Epithelial Cell,Urine 13 /hpf (0-5); Trichomonas,Urine Rare /hpf
[2018-05-30 02:30] LABS: Amphetamine Urine With Conf Neg (Neg); Benzodiazepine Urine With Conf Neg (Neg)
--- NOTE | 2018-05-30 03:16 | P.HPOB ---
History of Present Illness Primary Care Physician: UNKNOWN Chief Complaint: SROM History of Present Illness: Ms Navarrete is a 22 YO at 38 weeks gestation followed by Dr Ventura until March who presents with SROM at 12:30 AM about 30 minutes ago with brownish meconium stained fluid. Pt is having ctx but no VB. Pt states she feels good movement. Reports last delivered vaginally at term. Pt reports she has had arm and laser surgery. Denies medications except for PNV; NKDA; denies EtOH and drugs but smokes cigarettes. Records obtained indicate she is blood type A+; however, there is no record of GBS testing. Weeks Gestation:: 38 Para: 1 : 2 [facility] - History History Provided By: Patient - Medical / Surgical Hx Neg / Unobtainable Medical Problems Denied: Yes - Surgical History Surgical History: Surgical History (Last Updated 05/15/18 @ 09:51 by Parker Gonzales MD, R2) History of surgery on arm - Tobacco History Second Hand Smoke Exposure: Yes Smoking Status: Former smoker Tobacco Type: Cigarettes - Alcohol History How Often Do You Have a Drink Containing Alcohol: Never - Substance Use History Substance History: Past History - Travel History History of Recent Travel: No Medications and Allergies Active Medications: Active Medications Citric Acid/Sodium Citrate (Sodium Citrate/Citric Acid Liq) 30 ml PO RN HYPERBARIC [facility] Stop: 06/03/18 01:29 Fentanyl Citrate (Fentanyl Inj) 50 mcg IV.PUSH Q1H PRN PRN Reason: Pain Scale 3 - 5 Fentanyl Citrate (Fentanyl Inj) 100 mcg IV.PUSH Q1H PRN PRN Reason: PAIN SCALE 6 TO 10 Lactated Ringer's (Lr 1000 Ml Inj) 1,000 mls @ 125 mls/hr IV.CONT .Q8H [facility] Lactated Ringer's (Lr 1000 Ml Inj) 1,000 mls @ 3,000 mls/hr IV.SIG UNSCH PRN PRN Reason: compromise or epidural Sodium Chloride (Ns Inj) 1,000 mls @ 100 mls/hr IV.CONT .Q10H PRN PRN Reason: SEE LABEL COMMENTS Oxytocin (Pitocin 30 Units/Ns 500 Ml Premix) 30 units in 500 mls @ 999 mls/hr IV.SIG BOLUS ONE Stop: 05/30/18 02:00 Penicillin G Potassium 5,000, (000 unit/ Sodium Chloride) 100 mls @ 200 mls/hr IV.SIG ONCE ONE Stop: 05/30/18 01:59 Penicillin G Potassium 2,500, (000 unit/ Sodium Chloride) 100 mls @ 200 mls/hr IV.SIG Q4H [facility] Sodium Chloride (Ns Inj) 500 mls @ 1,000 mls/hr IV.SIG UNSCH PRN PRN Reason: SEE LABEL COMMENTS Lidocaine HCl (Xylocaine 1% Inj) 10 ml INFILTRATN PRN PRN PRN Reason: For episiotomy repair Stop: 06/01/18 01:29 Lidocaine HCl (Xylocaine 1% Inj) 0.1 ml I-DERMAL PRN PRN PRN Reason: For IV start Stop: 06/02/18 01:29 Mineral Oil (Muri-Lube Oil) 10 ml TOPICAL PRN PRN PRN Reason: PRN perineal massage Naloxone HCl (Narcan Inj) 0.1 mg IV.PUSH Q2M PRN PRN Reason: for opiate reversal Allergies Allergy/AdvReac Type Severity Reaction Status Date / Time shellfish derived Allergy Severe Anaphylaxis Verified 03/20/18 20:07 Home Medications Medication Instructions Recorded Confirmed Type vit,[id number] 1 tab PO DAILY 05/09/18 05/30/18 History [PNV 29-1] Exam Vital signs: Vital Signs 05/30/18 01:09 05/30/18 01:13 05/30/18 01:18 Temperature 98.1 F Pulse Rate 91 H Respiratory Rate 16 Blood Pressure 125/60 05/30/18 01:19 Temperature Pulse Rate Respiratory Rate 16 Blood Pressure Narrative: GENERAL: Well-nourished, well-developed patient in moderate pain from ctx. SKIN: Warm and dry. Good turgor HEAD: Normocephalic and atraumatic. EYES: No scleral icterus. No injection or drainage. ENT: No nasal drainage noted. Mucous membranes pink. Airway patent. NECK: Supple, trachea midline. No JVD. CARDIOVASCULAR: Regular rate and rhythm without murmurs, gallops, or rubs. RESPIRATORY: Breath sounds equal bilaterally. No accessory muscle use. ABDOMEN/GI: Abdomen soft, gravid, non-tender, bowel sounds present, no rebound, no guarding Gravid to 38 weeks size GENITOURINARY: External Genitalia: intact and normal in appearance Cervix: - Dilatation: 4-5 Effacement: 70 Station: -1 Presentation: vtx Membranes: ruptured, meconium stained Uterine Contractions: present FHT's: Category: 1 Baseline: 140 Reactive: yes Variability: moderate Decels: absent EXTREMITIES: No cyanosis or edema. BACK: Nontender without obvious deformity. No CVA tenderness. NEUROLOGICAL: Awake and alert. Motor and sensory grossly within normal limits. Five out of 5 muscle strength in all muscle groups. Normal speech. Results - Labs CBC & Chem 7: 05/30/18 01:40 Assessment and Plan - Diagnosis (1) Normal labor Code(s): O80 - Encounter for full-term uncomplicated delivery; Z37.9 - Outcome of delivery, unspecified Status: Acute Plan: 22 YO at 38 weeks followed until March by Dr Ventura presents with SROM about 30 minutes ago with meconium stained fluid and painful ctx. No vb. +FM. Cervix 4 -5/70/-1. FHT with BL 140, reactive, moderate, and no decels. GBS is unknown and she has no known allergies. Blood type is A+. Admit for Labor and Delivery. 1. Routine Labor -Admit to L&D -GBS unknown; GBS PCR ordered --If positive, PCN G 5 million units IV --PCN G 2.5 million units IV 4 hours after 1st dose if not yet delivered -Epidural PRN -OB UDS Pt SDW Dr Gregory
[2018-05-30] MEDS ORDERED: fentaNYL 2MCG-Bupiv 0.125% Epi 150 ML EPIDURAL ONE (03:29)
[2018-05-30] MEDS ORDERED: fentaNYL 2MCG-Bupiv 0.125% Epi 150 ML EPIDURAL SCH (05:00)
[2018-05-30] MEDS ORDERED: Oxytocin 30 Units/500ml Premix 30 UNITS/500 ML BAG IV.SIG PRN (06:05)
--- NOTE | 2018-05-30 08:39 | P.OBDELI ---
Weeks Gestation: 38 Patient Started Active Labor: Yes Medical Induction of Labor: No Artificial Rupture of Membrane: No Anesthesia: Epidural Episiotomy: none Vaginal Delivery: Spontaneous Presentation: Occiput anterior Nuchal Cord: x1 Delayed Cord Clamping (45 sec): Yes Placenta: Manual removal, Not intact, 3 vessel cord Laceration: None : Male Male A Infant Delivery Date: 05/30/18 Delivery Time: 07:45 Weight: 2.37 kg score (1 min): 9 score (5 min): 9
[2018-05-30] MEDS: Penicillin G Potassium Inj 2,500,000 UNIT in Sodium Chlor 0.9% Inj 100 ML IV.SIG SCH ×3 (10:40→18:42)
--- NOTE | 2018-05-31 08:37 | P.PNOB ---
Subjective Interval history: day #1 AFVSS overnight. Decreased lochia. Denies dysuria. No breast tenderness. Appetite good. No nausea or vomiting. Positive flatus. Ambulating well. Denies calf pain or shortness of breath. Otherwise, she is doing well this morning and has no other complaints. Objective Vital Signs/I&O: Vital Signs 05/30/18 09:16 05/30/18 09:46 05/30/18 10:30 Temperature 98.6 F Pulse Rate 75 78 Respiratory Rate 16 20 Blood Pressure 143/114 H 110/64 05/30/18 15:05 05/30/18 20:00 Temperature 98.2 F 98.1 F Pulse Rate 76 71 Respiratory Rate 16 18 Blood Pressure 112/76 121/67 Intake & Output 05/30/18 05/31/18 05/31/18 18:59 06:59 18:59 Weight 169 kg Result Diagrams: 05/30/18 01:40 Objective Remarks: GENERAL: Well-nourished, well-developed patient. CARDIOVASCULAR: Regular rate and rhythm without murmurs, gallops, or rubs. RESPIRATORY: Breath sounds equal bilaterally. No accessory muscle use. ABDOMEN/GI: Abdomen soft, non-tender. Fundus: Firm, non-tender at umbilicus. GENITOURINARY: Light to moderate bleeding. EXTREMITIES: No cyanosis or edema, non-tender, without signs of DVT. Medications and IVs: Active Medications Citric Acid/Sodium Citrate (Sodium Citrate/Citric Acid Liq) 30 ml PO [employer] [facility] Stop: 06/03/18 01:29 Fentanyl Citrate (Fentanyl Inj) 50 mcg IV.PUSH Q1H PRN PRN Reason: Pain Scale 3 - 5 Fentanyl Citrate (Fentanyl Inj) 100 mcg IV.PUSH Q1H PRN PRN Reason: PAIN SCALE 6 TO 10 Last Admin: 05/30/18 01:59 Dose: 100 mcg Lactated Ringer's (Lr 1000 Ml Inj) 1,000 mls @ 125 mls/hr IV.CONT .Q8H [facility] Last Admin: 05/30/18 10:41 Dose: Not Given Lactated Ringer's (Lr 1000 Ml Inj) 1,000 mls @ 3,000 mls/hr IV.SIG UNSCH PRN PRN Reason: compromise or epidural Last Admin: 05/30/18 05:48 Dose: 3,000 mls/hr Sodium Chloride (Ns Inj) 1,000 mls @ 100 mls/hr IV.CONT .Q10H PRN PRN Reason: SEE LABEL COMMENTS Penicillin G Potassium 2,500, (000 unit/ Sodium Chloride) 100 mls @ 200 mls/hr IV.SIG Q4H [facility] Last Admin: 05/30/18 18:42 Dose: Not Given Sodium Chloride (Ns Inj) 500 mls @ 1,000 mls/hr IV.SIG UNSCH PRN PRN Reason: SEE LABEL COMMENTS Oxytocin (Pitocin 30 Units/Ns 500 Ml Premix) 30 units in 500 mls @ 1 mls/hr IV.SIG TITRATE PRN; Protocol PRN Reason: For induction of labor Last Admin: 05/30/18 06:51 Dose: 1 milliunit/min, 1 mls/hr Fentanyl/Bupivacaine/Sodium Chlor (Fentanyl 2 Mcg-Bupiv 0.125% Epi) 150 mls @ 12 mls/hr EPIDURAL Q12H [facility] Ibuprofen (Motrin) 800 mg PO Q6H PRN PRN Reason: PAIN 1-10 Last Admin: 05/31/18 00:19 Dose: 800 mg Lidocaine HCl (Xylocaine 1% Inj) 10 ml INFILTRATN PRN PRN PRN Reason: For episiotomy repair Stop: 06/01/18 01:29 Lidocaine HCl (Xylocaine 1% Inj) 0.1 ml I-DERMAL PRN PRN PRN Reason: For IV start Stop: 06/02/18 01:29 Mineral Oil (Muri-Lube Oil) 10 ml TOPICAL PRN PRN PRN Reason: PRN perineal massage Naloxone HCl (Narcan Inj) 0.1 mg IV.PUSH Q2M PRN PRN Reason: for opiate reversal Ondansetron HCl (Zofran Inj) 4 mg IV.PUSH Q4H PRN PRN Reason: NAUSEA OR VOMITING Assessment and Plan - Diagnosis (1) Normal labor Code(s): O80 - Encounter for full-term uncomplicated delivery; Z37.9 - Outcome of delivery, unspecified Status: Acute Plan: 22y/o female who is PPD#1 s/p . -Continue routine care. -Motrin PRN pain. -Encouraged OOB. Advised pelvic rest for 6 wks. -Re: ctrl, she does not wish to discuss at this time -D/c in 1-[address] Dumont
[2018-05-31] MEDS: Acetaminophen 325 MG Tablet PO PRN ×3 (10:27→20:55)
[2018-06-01] MEDS: Acetaminophen 325 MG Tablet PO PRN ×2 (07:36→12:02)
--- NOTE | 2018-06-01 08:47 | P.PNOB ---
Subjective Interval history: day #2 AFVSS overnight. Decreased lochia. Denies dysuria. No breast pain. Appetite good. No nausea or vomiting. Ambulating well. Denies calf pain or shortness of breath. Otherwise, she is doing well this morning and has no other complaints. Objective Vital Signs/I&O: Vital Signs 05/31/18 20:05 Temperature 98.1 F Pulse Rate 60 Respiratory Rate 17 Blood Pressure 114/74 Result Diagrams: 05/30/18 01:40 Objective Remarks: GENERAL: Well-nourished, well-developed patient. CARDIOVASCULAR: Regular rate and rhythm without murmurs, gallops, or rubs. RESPIRATORY: Breath sounds equal bilaterally. No accessory muscle use. ABDOMEN/GI: Abdomen soft, non-tender, bowel sounds present. Incision: Clean, dry and intact. Fundus: Firm, non-tender at umbilicus. GENITOURINARY: Light to moderate bleeding. EXTREMITIES: No cyanosis or edema, non-tender, without signs of DVT. Medications and IVs: Active Medications Acetaminophen (Tylenol) 650 mg PO Q4H PRN PRN Reason: PAIN SCALE 1-5 Last Admin: 06/01/18 07:36 Dose: 650 mg Citric Acid/Sodium Citrate (Sodium Citrate/Citric Acid Liq) 30 ml PO [employer] [facility] Stop: 06/03/18 01:29 Fentanyl Citrate (Fentanyl Inj) 50 mcg IV.PUSH Q1H PRN PRN Reason: Pain Scale 3 - 5 Fentanyl Citrate (Fentanyl Inj) 100 mcg IV.PUSH Q1H PRN PRN Reason: PAIN SCALE 6 TO 10 Last Admin: 05/30/18 01:59 Dose: 100 mcg Lactated Ringer's (Lr 1000 Ml Inj) 1,000 mls @ 125 mls/hr IV.CONT .Q8H [facility] Last Admin: 05/30/18 10:41 Dose: Not Given Lactated Ringer's (Lr 1000 Ml Inj) 1,000 mls @ 3,000 mls/hr IV.SIG UNSCH PRN PRN Reason: compromise or epidural Last Admin: 05/30/18 05:48 Dose: 3,000 mls/hr Sodium Chloride (Ns Inj) 1,000 mls @ 100 mls/hr IV.CONT .Q10H PRN PRN Reason: SEE LABEL COMMENTS Penicillin G Potassium 2,500, (000 unit/ Sodium Chloride) 100 mls @ 200 mls/hr IV.SIG Q4H [facility] Last Admin: 05/30/18 18:42 Dose: Not Given Sodium Chloride (Ns Inj) 500 mls @ 1,000 mls/hr IV.SIG UNSCH PRN PRN Reason: SEE LABEL COMMENTS Oxytocin (Pitocin 30 Units/Ns 500 Ml Premix) 30 units in 500 mls @ 1 mls/hr IV.SIG TITRATE PRN; Protocol PRN Reason: For induction of labor Last Admin: 05/30/18 06:51 Dose: 1 milliunit/min, 1 mls/hr Fentanyl/Bupivacaine/Sodium Chlor (Fentanyl 2 Mcg-Bupiv 0.125% Epi) 150 mls @ 12 mls/hr EPIDURAL Q12H [facility] Ibuprofen (Motrin) 800 mg PO Q6H PRN PRN Reason: PAIN SCALE 6-10 Last Admin: 06/01/18 07:35 Dose: 800 mg Lidocaine HCl (Xylocaine 1% Inj) 0.1 ml I-DERMAL PRN PRN PRN Reason: For IV start Stop: 06/02/18 01:29 Mineral Oil (Muri-Lube Oil) 10 ml TOPICAL PRN PRN PRN Reason: PRN perineal massage Naloxone HCl (Narcan Inj) 0.1 mg IV.PUSH Q2M PRN PRN Reason: for opiate reversal Ondansetron HCl (Zofran Inj) 4 mg IV.PUSH Q4H PRN PRN Reason: NAUSEA OR VOMITING Assessment and Plan - Diagnosis (1) Normal labor Code(s): O80 - Encounter for full-term uncomplicated delivery; Z37.9 - Outcome of delivery, unspecified Status: Acute Plan: 22y/o female who is PPD#2 s/p . -Continue routine care. -Motrin PRN pain. -Encouraged OOB. Advised pelvic rest for 6 wks. -Re: ctrl, she does not wish to discuss at this time -D/c likely today. wdw Dr. Moreno - Attending Attestation The exam, history, and the medical decision-making described in the above note were completed with the assistance of the resident physician. I reviewed and agree with the findings presented. I attest that I had a [id number] encounter with the patient on the same day, and personally performed and documented my assessment and findings in the medical record.
== END 2018-06-01 12:42 | disposition home or self-care (01) ==
LOC: HOBED 00:59 → H2E 01:30 → H1EA 10:12
PROVIDERS: ADMIT Obstetrics & Gynecology Maternal & Fetal Medicine; ATTEND Obstetrics & Gynecology Maternal & Fetal Medicine